=== PATIENT | male | born 1935 | race American Indian/Alaskan Native ===

== ENCOUNTER 2017-09-03 10:46 | Outpatient (CLI) | payer MEDICARE ==
--- NOTE | 2017-09-03 11:24 | XRay Report ---
LEFT HIP RADIOGRAPHS INDICATION: Hip pain. COMPARISON: None similar at this institution. FINDINGS: An AP pelvic radiograph with frog-leg projection of the left hip demonstrate normal femoral head contour. Mild left acetabular degenerative spurring. Few prostate region surgical clips. Possible osteopenia. Imaged bilateral SI and hip joints appear intact. Nonobstructive bowel gas pattern. CONCLUSION: No acute radiographic abnormality with few incidental findings, as above. Thank you for the opportunity to participate in this patient's care.
== END 2017-09-03 10:47 | disposition home or self-care (01) ==
LOC: SPVIMAG 10:46
PROVIDERS: ATTEND Physical Medicine & Rehabilitation
DX: M25.552 Pain in left hip (principal); M79.652 Pain in left thigh